=== PATIENT | male | born 1955 | race Caucasian/White ===

== ENCOUNTER 2019-04-01 16:03 | Emergency (ER) | payer MEDICAID ==
[2019-04-01] MEDS ORDERED: Adacel Vial IM ONE ×2 (16:52→17:13)
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
[2019-04-01 16:58] LABS: Hematocrit 38.6 % (42-50); Hemoglobin 12.8 gm/dl (12.5-18.0); Mean Cell Volume 94.1 fl (78-100); Mean Corpuscular Hemoglobin 31.2 pg (26-32); Mean Corpuscular Hgb Concent. 33.2 g/dl (32-36); Mean Platelet Volume 9.8 fl (6-9.5); Platelet Count 183 K/mm3 (150-450); Red Cell Distribution Width 14.9 % (11.5-14.0)
[2019-04-01 17:04] LABS: ALBUMIN 3.7 g/dL (3.5-5.0); ALKALINE PHOSPHATASE 69 U/L (38-126); ANION GAP 11.1 MEQ/L (5-15); BLOOD UREA NITROGEN 19 mg/dL (9-20); CHLORIDE 116 mmol/L (98-107); Calcium 8.7 mg/dL (8.4-10.2); Carbon Dioxide 20 mmol/L (22-30); Creatinine 1 0.88 mg/dL (0.66-1.25); Glucose 157 mg/dL (74-106); Potassium 3.8 mmol/L (3.5-5.1); SGOT/AST 25 U/L (17-59); SGPT/ALT 30 U/L (0-50); SODIUM 144 mmol/L (137-145); Total Protein 6.3 g/dL (6.3-8.2)
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
[2019-04-01 17:58] VITALS: O2SAT 96
[2019-04-01 18:01] LABS: ATYPICAL LYMPHS 4 %; BAND 3 % (0.0-2.0); Basophil 1 % (0.0-1.0); Lymphocytes 31 % (24-44); Monocyte 5 % (0.0-12.0); Neutrophils 56 % (36.-66.); Platelet Estimate NORMAL (NORMAL); Total Cells Counted 100
[2019-04-01] MEDS ORDERED: Sodium Chloride 0.9% 1000 ML 1,000 ML ONE (18:05)
[2019-04-01 18:55] VITALS: BP 126/63; PULSE 76
[2019-04-01] MEDS ORDERED: MORPHINE SULFATE 2 MG INJ IV ONE (18:55)
[2019-04-01] MEDS ORDERED: MORPHINE SULFATE 2 MG INJ ONE (18:56)
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
== END 2019-04-01 19:12 | disposition short-term general hospital (02) ==
LOC: ED 16:03
DX: S12.301A Unspecified nondisplaced fracture of fourth cervical vertebra, initial encounter for closed fracture (principal); V89.0XXA Person injured in unspecified motor-vehicle accident, nontraffic, initial encounter; Y93.89 Activity, other specified; Y92.488 Other paved roadways as the place of occurrence of the external cause; S60.419A Abrasion of unspecified finger, initial encounter; M54.2 Cervicalgia; M25.562 Pain in left knee
CPT/HCPCS: 36000; 36415; 70450; 72125; 73562; 80053; 80307; 85025; 90471; 90715; 96374; 99285; J2270; L0172; G0480